=== PATIENT | female | born 1945 | race Caucasian/White ===

== ENCOUNTER 2017-08-07 15:38 | Observation (INO) | payer MEDICARE, OTHER ==
[2017-08-07 16:09] LABS: #Lymphocytes 0.9 thou/uL (1.20-3.40); #Monocytes 0.7 thou/uL (0.11-0.59); #Neutrophils 4.5 thou/uL (1.40-6.50); %Basophils 0.5 % (0.0-1.0); %Eosinophils 0.5 % (0.0-10.0); %Lymphocytes 14.1 % (21.0-51.0); %Monocytes 11.4 % (0.0-10.0); Hematocrit 42.1 % (36.0-47.0); Red Blood Cell (RBC) Count 4.57 mill/uL (4.20-5.40); White Blood Cell (WBC) Count 6.1 thou/uL (4.8-10.8)
--- NOTE | 2017-08-07 16:24 | RAD ---
CHEST ONE VIEW: History: Cough, weakness. FINDINGS: Cardiac silhouette is magnified by projection. Pulmonary vasculature is upper limits of normal. Medi astinum is midline with aortic calcification. There is no lobar consolidation or evidence of pneumot horax. Post-operative changes of the cervical spine are apparent. IMPRESSION: Borderline pulmonary vascular congestion. No florid edema is evident. POS: [facility]
[2017-08-07 16:33] LABS: ALT (SGPT) 21 U/L (8-55); AST (SGOT) 24 U/L (5-34); Alkaline Phosphatase 124 U/L (40-150); Anion Gap 14 mmol/L (10-20); BUN (Urea Nitrogen) 15 mg/dL (9.8-20.1); Bilirubin, Total 0.5 mg/dL (0.2-1.2); Calc. Creatinine Clearance 0 mL/min (70-130); Calcium 9.5 mg/dL (7.8-10.44); Carbon Dioxide 25 mmol/L (23-31); Chloride 100 mmol/L (98-107); Estimated GFR-MDRD 59; Globulin 3.6 g/dL (2.4-3.5); Protein, Total 7.6 g/dL (6.0-8.3)
[2017-08-07 17:44] LABS: Bilirubin Negative (Negative); Blood, Urine Negative (Negative); Glucose, Urine (Dipstick) Negative (Negative); Ketone, Urine Negative (Negative); Nitrite Negative (Negative); Protein, Urine (Dipstick) Negative (Neg-Trace)
[2017-08-07] MEDS ORDERED: Acetaminophen 325 MG TAB ONE (18:51)
[2017-08-07] MEDS ORDERED: Ondansetron ODT 4 MG TAB SL PRN (19:54)
[2017-08-07] MEDS ORDERED: Ondansetron HCl/PF 4 MG/2 ML Vial IVP PRN (19:54)
[2017-08-07] MEDS ORDERED: Acetaminophen 325 MG TAB PO PRN ×2 (19:54→21:36)
[2017-08-07] MEDS ORDERED: Mag-Al 1200 mg/1200 mg/30 ML UDCUP PO PRN (21:36)
[2017-08-07] MEDS ORDERED: HYDROcodone/Acetaminophen 5/325 mg Tablet PO PRN (21:36)
[2017-08-07] MEDS ORDERED: Ondansetron ODT 4 MG TAB PO PRN (21:36)
[2017-08-07] MEDS ORDERED: Benzonatate 100 MG CAP PO PRN (21:57)
[2017-08-07] MEDS ORDERED: Oseltamivir 75 MG CAP PO SCH (22:00)
[2017-08-07] MEDS ORDERED: Famotidine 20 MG TAB PO SCH (22:00)
--- NOTE | 2017-08-07 22:11 | HP ---
DATE OF ADMISSION: 08/07/2017 PRIMARY CARE PHYSICIAN: [place], [place]. CHIEF COMPLAINT: Cough and weakness. HISTORY OF PRESENT ILLNESS: Ms. Read is a 71-year-old female recently diagnosed with dementia, who , per history developed a cough since 08/04/2017. The cough has been slowly progressive over the la st couple of days and worsens 08/06/2017. She took some dextromethorphan cough syrup (Delsym), some Mucinex DM, and oral antibiotic, believed to be amoxicillin and developed a decreased level in ment ation and increased confusion. She was brought to the emergency department for evaluation. Here, t he labs looked okay except for her influenza test that was positive for influenza A. She states she is too weak to get out of bed and we have been called for further workup and evaluation. She denies any fevers or chills, no nausea or vomiting. No diarrhea or constipation. Overall, she feels weak and achy all over. PAST MEDICAL HISTORY: 1. Dementia. 2. Neuropathy. 3. Hypertension. 4. Hyperlipidemia. 5. Depression. 6. Gastroesophageal reflux disease. PAST SURGICAL HISTORY: Includes; 1. Colon surgery. 2. C-spine surgery. 3. Bladder surgery. 4. Bilateral hallux surgeries. 5. Cholecystectomy. 6. Hysterectomy both remotely. HOME MEDICATIONS: 1. Duloxetine 60 mg p.o. daily. 2. Azelastine 1 puff by both nostrils b.i.d. 3. Nexium 20 mg daily. 4. Namenda 10 mg daily. 5. Valsartan 80 mg p.o. at bedtime. 6. Zocor 40 mg daily 7. Metoprolol tartrate 50 mg p.o. b.i.d. 8. Amoxicillin 500 mg p.o. b.i.d. ALLERGIES: CODEINE. FAMILY HISTORY: Negative for history of clotting or bleeding disorders SOCIAL HISTORY: Negative for habits x3. She lives in [place], [place]. REVIEW OF SYSTEMS: Attempted. The patient had difficulty recalling things and not sure how reliabl e the review of systems was, but a 10-point review of systems was attempted. PHYSICAL EXAMINATION: VITAL SIGNS: Temperature on arrival 100.4, pulse 87, blood pressure 151/91, respiratory rate 20, sa t 94% on room air. GENERAL: She is awake. She is alert. She is oriented to person and place, but quickly loses trevor ntration, unable to tell me what date it is. HEENT: Normocephalic and atraumatic. Pupils are equal, round, react to light bilaterally. Mucous membranes are moist. She has no visible lesions. No thrush. LUNGS: Clear. CARDIOVASCULAR: Normal S1, S2, no S3 or S4. She has normal cardiac. There are no audible murmurs. ABDOMEN: Soft, nontender, nondistended, no masses, no organomegaly. EXTREMITIES: Showed no cyanosis, no clubbing with trace bilateral lower extremity edema, just above the ankles down. SKIN: Otherwise, warm, moist and well perfused. She has no rash or lesions. NEUROLOGIC: Shows no focal deficits. She has approximately 3-1/2-4/5 strength in the bilateral low er extremities and 5/5 strength in the upper extremities. LABORATORY DATA: BMP is normal. Liver function is normal. CBC showed a white count of 6.1, hemogl obin 14.0, hematocrit of 42.1, platelets 243,000. Flu influenza screen was positive for flu A. X-ray showed mild pulmonary vascular congestion. Otherwise, clear. ASSESSMENT AND PLAN: 1. Influenza A: We will start her on oseltamivir 75 mg p.o. b.i.d. 2. Muscular weakness. We will have PT evaluate her in the morning. She is able to ambulate now wi th assistance. We will encourage the nurses to get her moving. 3. Dementia. We will continue her Namenda. 4. Neuropathy. 5. Hypertension, on valsartan and metoprolol tartrate. 6. Gastroesophageal reflux disease. We will place on her home Nexium. The patient will be placed in observation and watched overnight. I suspect, she should be able to go home in the morning.
[2017-08-07] MEDS: Sodium Chloride 0.9% 1,000 ML IV SCH (22:45)
[2017-08-08 00:34] VITALS: BMI 33.0
[2017-08-08] MEDS: Guaifenesin DM 100-10/5 ML UDCUP PO PRN ×2 (01:29→09:03)
[2017-08-08 04:44] LABS: Anion Gap 13 mmol/L (10-20); BUN (Urea Nitrogen) 15 mg/dL (9.8-20.1); Calc. Creatinine Clearance 86 mL/min (70-130); Carbon Dioxide 21 mmol/L (23-31); Chloride 104 mmol/L (98-107); Estimated GFR-MDRD 77
[2017-08-08 05:30] LABS: Band 5 % (5-11); Hematocrit 41.8 % (36.0-47.0); Mean Platelet Volume 7.5 fL (7.4-10.4); Metamyelocyte 1 % (0-0); Neutrophil 52 % (42-75); Reactive Lymphocytes 1 % (0-10); White Blood Cell (WBC) Count 3.9 thou/uL (4.8-10.8)
[2017-08-08 07:25] VITALS: BP 146/51; TEMP 99.3
[2017-08-08] MEDS: Sodium Chloride 0.9% 1,000 ML IV SCH (08:59)
[2017-08-08] MEDS ORDERED: FLU VACC TS2017-18 (>65YR) 0.5 ML SYRINGE IM ONE (09:00)
[2017-08-08] MEDS ORDERED: AZELASTINE HCL EA NARE SCH (09:00)
[2017-08-08] MEDS ORDERED: Enoxaparin Sodium 40 MG/0.4 ML SYRINGE SC SCH (09:00)
[2017-08-08] MEDS ORDERED: Oseltamivir 75 MG CAP PO SCH (09:00)
[2017-08-08] MEDS ORDERED: Valsartan 80 MG TAB PO SCH (09:00)
[2017-08-08] MEDS ORDERED: Metoprolol Tartrate 50 MG TAB PO SCH (09:00)
[2017-08-08] MEDS ORDERED: Azelastine 137 MCG/Spray 30 ML NS SCH (09:00)
[2017-08-08] MEDS ORDERED: Famotidine 20 MG TAB PO SCH (09:00)
--- NOTE | 2017-08-08 11:19 | DIS ---
DATE OF ADMISSION: 08/07/2017 DATE OF DISCHARGE: 08/08/2017 PRIMARY CARE PHYSICIAN: [facility] call admission. DISCHARGE DISPOSITION: Home. PRIMARY DISCHARGE DIAGNOSIS: Influenza A. SECONDARY DISCHARGE DIAGNOSES: Obesity with BMI 33, hypertension, dyslipidemia, and dementia. PRIMARY PROCEDURE/OPERATION: None. RADIOLOGICAL INVESTIGATION: Chest x-ray normal. SIGNIFICANT LABS: WBC 3.9, hemoglobin 13.7, platelets 189. Sodium 134, creatinine 0.74, LFT normal . Urinalysis normal. Influenza A was positive. DISCHARGE MEDICATIONS: Tamiflu 75 mg p.o. b.i.d. for 4 more days, Robitussin-DM 5 mL q.4 hourly p.r .n. for cough. The patient is advised to finish amoxicillin 500 mg twice daily for 5 days, azelasti ne nasal spray b.i.d., Cymbalta 60 mg p.o. daily, Nexium 20 mg p.o. daily, Namenda 10 mg p.o. b.i.d. , metoprolol tartrate 50 mg p.o. b.i.d., Zocor 40 mg p.o. at bedtime, Diovan 80 mg p.o. daily. CONTRAINDICATIONS: None. CODE STATUS: FULL CODE. INPATIENT CONSULTANTS: None. ALLERGIES: CODEINE. DISCHARGE PLAN: Post hospital, the patient will follow up with primary care physician in 1 week. HOSPITAL COURSE: A 71-year-old female with above mentioned medical problems, who was admitted by Dr Juan A varela. Please see his H and P for further details. The patient was having upper respirator y symptoms since Saturday including cough, generalized weakness, body ache, and subjective fever. The patient was admitted to medical floor. She was diagnosed with influenza A. Her chest x-ray was no rmal. While in hospital, she remained afebrile. On discharge, we changed to Tamiflu for another 4 days. While in hospital, she was treated symptomatically with Tamiflu as well as respiratory therap y. We advised her to continue amoxicillin, which was recently prescribed at Urgent Care. New medic ation prescription given. PHYSICAL EXAMINATION: Patient is seen and examined at bedside today. VITAL SIGNS: Currently, temperature 98.7, pulse 95, respiratory rate 20, saturation 96%, blood pres sure 140/81, weight 175 pounds. GENERAL: The patient is currently alert, awake, in no acute distress. HEAD: Normocephalic, atraumatic. LUNGS: Clear to auscultation without any rhonchi or rales. CARDIAC: S1, S2 regular without any murmur. ABDOMEN: Soft and benign. EXTREMITIES: No edema. NEUROLOGIC: Nonfocal examination. The patient is medically stable for discharge today.
[2017-08-08] MEDS ORDERED: Atorvastatin Calcium 20 MG TAB PO SCH (21:00)
[2017-08-08] MEDS ORDERED: Simvastatin 40 MG TAB PO SCH (21:00)
== END 2017-08-08 11:47 | disposition home or self-care (01) ==
LOC: ERS 15:38 → T4-A 18:20
PROVIDERS: ADMIT Internal Medicine Infectious Disease; ATTEND Internal Medicine Infectious Disease
DX: J09.X2 Influenza due to identified novel influenza A virus with other respiratory manifestations (principal); I10 Essential (primary) hypertension; E78.5 Hyperlipidemia, unspecified; F03.90 Unspecified dementia, unspecified severity, without behavioral disturbance, psychotic disturbance, mood disturbance, and anxiety; F32.9 Major depressive disorder, single episode, unspecified; G62.9 Polyneuropathy, unspecified; E66.9 Obesity, unspecified; Z68.33 Body mass index [BMI] 33.0-33.9, adult; Z88.5 Allergy status to narcotic agent; Z79.899 Other long term (current) drug therapy; Z90.49 Acquired absence of other specified parts of digestive tract; Z90.710 Acquired absence of both cervix and uterus; Z98.890 Other specified postprocedural states
CPT/HCPCS: 51701; 71010; 80048; 80053; 81003; 85025 ×2; 87804 ×2; 93005; 96360; 96361; 96372; 97139; 99285; G0378; 36415; A4216; J1650